=== PATIENT | male | born 1940 | race Caucasian/White ===

== ENCOUNTER 2016-06-18 03:10 | Emergency (ER) | payer OTHER, MEDICARE ==
[~2016-06-18] VITALS: Ht 170.2 cm; Wt 83.9 kg
[~2016-06-18 03:10] MED LIST: AUGMENTIN 875-1 EACH PO; KEFLEX250 M1 PO; LASIX40 M1 PO; LOSARTAN POTAS100 M1 PO; TYLENOL #31 TAB PO; VITAMIN B-121000 MC3 PO; XARELTO15 M1 PO; XARELTO20 M2 PO
--- NOTE | 2016-06-18 03:54 | ED UPPER/LOWER EXTREMITY COMPL ---
History of Present Illness General Chief Complaint: Lower Extremity Problems Stated Complaint: " CAN HARDLY BEND MY LT LEG, THINK ITS WATER" Source: patient Exam Limitations: no limitations Vital Signs & Intake/Output Vital Signs & Intake/Output Vital Signs Date Time Temp Pulse Resp B/P Pulse O2 O2 Flow FiO2 Ox Delivery Rate 06/18 0856 98.7 76 18 147/72 97 06/18 0636 97.3 80 18 157/74 96 06/18 0324 97.3 88 16 161/80 97 Room Air Allergies Coded Allergies: NO KNOWN ALLERGIES (03/21/16) Triage Note: 76yo MALE TO TRIAGE W/CO "UNABLE TO BEND L LEG" STATES HX "MINI STROKE AND R SIDE IS WEAKER" DENIES ANY FALL, TRAUMA OR INJURY. Triage Nurses Notes Reviewed? yes HPI: 76/M with PMH of HTN and stroke with remnants right side weakness presented to [facility] ED complaining of left knee swelling and pain. Patient had a full 6 days ago after which his pain started. He was seen this date after the fall and x-ray was done, no fracture was found at that time. He had mild swelling below the knee level at that time. Since yesterday patient swelling extended to above the knee. His pain started to be more severe. Patient reported limited range of motion on his left knee because of pain. He is pain-free when he does not use the left knee. Patient use cane to ambulate and he reported history of multiple falls. 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 see below for history Psychosocial History ETOH Use: denies use Illicit Drug Use: denies illicit drug use Family History Hx Contributory? No (TAYLOR PENDLETON,ANISH Hargrove) Review of Systems Review of Systems Constitutional: Denies: chills, diaphoresis, fever. Respiratory: Denies: cough, short of breath. Cardiovascular: Reports: peripheral edema (left side lower extremity). Denies: chest pain, palpitations, syncope. Gastrointestinal/Abdominal: Denies: abdominal pain, constipation, diarrhea, nausea, vomiting. Musculoskeletal: Reports: joint pain (left knee), joint swelling (left knee). (HARMONY PENDLETON,MANNY) Review of Systems EENTM: Reports: no symptoms. Genitourinary: Reports: no symptoms. Skin: Reports: no symptoms. Neurological/Psychological: Reports: no symptoms. Hematologic/Endocrine: Reports: no symptoms. Immunological: Reports: no symptoms. All Other Systems: Reviewed and Negative (TAYLOR PENDLETON,ANISH Hargrove) Physical Exam Physical Exam General Appearance: well developed/nourished, no apparent distress, alert, awake , moderate distress (with pending the left knee) Head: atraumatic, normal appearance Eyes: Bilateral: normal appearance, PERRL, EOMI. Cardiovascular/Respiratory: normal breath sounds, regular rate/rhythm Leg Left: swelling (knee and below), tenderness (lateral), pain, limited range of motion Leg Right: normal range of motion, normal inspection Knee Left: swelling, tenderness (lateral side), limited range of motion (because of pain) Knee Right: normal range of motion, normal inspection (HARMONY PENDLETON,MANNY) Physical Exam Neck: normal inspection, supple, no midline tenderness Gastrointestinal: SOFT, NONTENDER AND NONDISTENDED. nORMAL BOWEL SOUNDS. Back: normal inspection, normal range of motion, no vertebral tenderness Neurologic/Tendon: normal sensation, normal motor functions, normal tendon functions Skin: intact, normal color, warm/dry (TAYLOR PENDLETON,ANISH Hargrove) Progress Differential Diagnosis: DVT, fracture, gout Plan of Care: Orders Procedure Date/time Status US-UNILATERAL VENOUS DOPPLER 06/18 357 Active Diagnostic Imaging: Viewed by Me: CT Scan, Ultrasound. Discussed w/RAD: CT Scan, Ultrasound. Radiology Impression: PATIENT: CHAD VIRK PRESENT AGE: 76 PATIENT ACCOUNT NO: [id number] : 39 LOCATION: [facility] ORDERING PHYSICIAN: MANNY ANTUNEZ MD SERVICE DATE: 06/18/16 EXAM TYPE : CAT - CT LOWER EXT WO IV CONTRAST EXAMINATION: CT LOWER EXTREMITY WITHOUT CONTRAST, LEFT CLINICAL INFORMATION: Left knee swelling after fall 6 days ago. Pain. COMPARISON: None. TECHNIQUE: Multidetector volumetric imaging of the left knee was performed without IV contrast. Coronal and sagittal reformatted images were obtained at the technologist workstation. DLP: 905 mGy-cm. FINDINGS: There is no evidence of acute fracture or subluxation. Mild tricompartmental degenerative changes are noted with small marginal osteophytes. There is no joint effusion. There is prominent prepatellar soft tissue swelling with a hematoma present. The hematoma measures 6.1 x 2.4 x 10.5 cm. Vascular calcifications are noted. The musculature is unremarkable. IMPRESSION: No evidence of acute fracture or malalignment. Mild degenerative changes. Prominent hematoma in the prepatellar facial soft tissues. DICTATED BY: NORM MENDEZ MD DATE/TIME DICTATED:06/18/16432 CUE SELECTOR:JT DATE/TIME TRANSCRIBED:06/18/16432 CONFIDENTIAL, DO NOT COPY WITHOUT APPROPRIATE AUTHORIZATION. <Electronically signed in Other Vendor System> SIGNED BY: NORM MENDEZ MD 06/18/16438 Hand-Off Endorsed To: ROBERTO HERNANDEZ MD Endorsed Time: 0700 Pending: ultrasound (TAYLOR PENDLETON,ANISH Hargrove) Radiology Impression: PATIENT: CHAD VIRK PRESENT AGE: 76 PATIENT ACCOUNT NO: [id number] : 39 LOCATION: [facility] ORDERING PHYSICIAN: MANNY ANTUNEZ MD SERVICE DATE: 06/18/16 EXAM TYPE : CAT - CT LOWER EXT WO IV CONTRAST EXAMINATION: CT LOWER EXTREMITY WITHOUT CONTRAST, LEFT CLINICAL INFORMATION: Left knee swelling after fall 6 days ago. Pain. COMPARISON: None. TECHNIQUE: Multidetector volumetric imaging of the left knee was performed without IV contrast. Coronal and sagittal reformatted images were obtained at the technologist workstation. DLP: 905 mGy-cm. FINDINGS: There is no evidence of acute fracture or subluxation. Mild tricompartmental degenerative changes are noted with small marginal osteophytes. There is no joint effusion. There is prominent prepatellar soft tissue swelling with a hematoma present. The hematoma measures 6.1 x 2.4 x 10.5 cm. Vascular calcifications are noted. The musculature is unremarkable. IMPRESSION: No evidence of acute fracture or malalignment. Mild degenerative changes. Prominent hematoma in the prepatellar facial soft tissues. DICTATED BY: NORM MENDEZ MD DATE/TIME DICTATED:06/18/16432 CUE SELECTOR:BRAR DATE/TIME TRANSCRIBED:06/18/16432 CONFIDENTIAL, DO NOT COPY WITHOUT APPROPRIATE AUTHORIZATION. <Electronically signed in Other Vendor System> SIGNED BY: NORM MENDEZ MD 06/18/16438, PATIENT: CHAD VIRK PRESENT AGE: 76 PATIENT ACCOUNT NO: [id number] : 39 LOCATION: [facility] ORDERING PHYSICIAN: MANNY ANTUNEZ MD SERVICE DATE: 06/18/16 EXAM TYPE: US - US-UNILATERAL VENOUS DOPPLER EXAMINATION: US TRIPLEX LOWER EXTREMITY, LEFT CLINICAL INFORMATION: History of left lower extremity trauma 6 days ago with increasing swelling. Evaluate for DVT. COMPARISON: CT lower extremity 06/18 TECHNIQUE: Color-flow triplex imaging with spectral analysis and compression Doppler were performed on the left lower extremity. FINDINGS: Respiratory variation, normal compression and augmented flow are noted throughout the lower extremity. The visualized common femoral vein, superficial femoral vein, profunda femoral vein, popliteal vein and mid calf peroneal and posterior tibial venous segments show no evidence of deep venous thrombosis. There is no Neely's cyst. A complex heterogeneous collection is seen within the prepatellar soft tissues measuring 7.8 x 2.8 x 4.8 cm. IMPRESSION: Normal triplex scan without evidence of deep venous thrombosis involving the left lower extremity. Complex heterogeneous collection within the prepatellar soft tissues which likely represents a hematoma. DICTATED BY: JARED ZUNIGA DO DATE/TIME DICTATED:06/18/16815 CUE SELECTOR:BARR DATE/TIME TRANSCRIBED:815 CONFIDENTIAL, DO NOT COPY WITHOUT APPROPRIATE AUTHORIZATION. < Electronically signed in Other Vendor System> SIGNED BY: JARED ZUNIGA DO 06/18/16 0825 Comments: 06/18/2016 9:58:06 AM patient signed out to me by Dr. 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 I have updated Chad on his test results. (TERRI PENDLETON,ROBERTO Cabrera) Departure Departure Condition: Stable Referrals: TONY GRAY-PRADEEP,MOMO Ramos (PCP/Family) Departure Forms: Customer Survey General Discharge Information ([facility]ARMONY PENDLETON[facility] Resident Co-Sign Statement Statement: ED Attending supervision documentation- [X] I saw and evaluated the patient. I have also reviewed all the pertinent lab results and diagnostic results. I agree with the findings and the plan of care as documented in the Resident's documentation. [X] I have reviewed the ED Record and agree with the Resident's documentation. [] Additions or exceptions (if any) to the Resident's note and plan are summarized below: [Patient lost his balance and fell last and landed on his left knee. Patient had history of stroke with residual right-sided weakness and has frequent falls. Patient's left knee was bothering him so he went to see Dr. Corarl on Wednesday who obtained x-rays which were negative for any kind of fracture. Patient's left lower leg was swelling but it was not involving his knee until yesterday. Now the swelling from his lower leg has spread into his knee and he cannot fully bend his knee because the swelling. Patient is also finding it difficult to walk secondary to the pain in his left knee. The pain is throbbing in nature and he rates it as 7 out of 10. There is no radiation. The pain is exacerbated with walking. There is no numbness or tingling. We will obtain a CAT scan to rule out a small tibial plateau fracture as well as obtain an ultrasound to rule out a DVT.] (TAYLOR PENDLETON,ANISH Hargrove) Departure Disposition: HOME OR SELF CARE Clinical Impression Primary Impression: Left knee sprain Qualifiers: Encounter type: subsequent encounter Involved ligament of knee: unspecified ligament Qualified Code: S83.92XD - Sprain of unspecified site of left knee, subsequent encounter Secondary Impressions: Hematoma Additional Instructions: Ice and elevation of the left knee over the next 48 hours. Activity as tolerated. Follow-up with your primary care physician on Wednesday for reevaluation and further testing is indicated. Return if any concerns or sudden worsening. Please note that there might be incidental findings in your evaluation that are unrelated to the current emergency department visit. Please notify your primary care doctor about this emergency department visit in order to obtain and review all of the testing performed so that these incidental findings can be monitored as needed. If you had an x-ray performed, please understand that some fractures may not be seen on the initial set of x-rays. If your symptoms persist you might need a repeat set of x-rays to check for such a fracture. If you had a laceration evaluated, please understand that foreign bodies such as glass or wood may not be visible to the naked eye or on plain x-rays. If the wound becomes red, swollen, increasingly more painful or if there is any drainage from the wound, please have it reevaluated by a physician for the possibility of a retained foreign body. Thank you for choosing the [facility] Emergency Department for your care. It was a pleasure to serve you today. Roberto Hernandez M.D. [facility] (TERRI PENDLETON,ROBERTO Cabrera)
--- NOTE | 2016-06-18 04:39 | CT SCAN REPORT ---
EXAMINATION: CT LOWER EXTREMITY WITHOUT CONTRAST, LEFT CLINICAL INFORMATION: Left knee swelling after fall 6 days ago. Pain. COMPARISON: None. TECHNIQUE: Multidetector volumetric imaging of the left knee was performed without IV contrast. Coronal and sagittal reformatted images were obtained at the technologist workstation. DLP: 905 mGy-cm. FINDINGS: There is no evidence of acute fracture or subluxation. Mild tricompartmental degenerative changes are noted with small marginal osteophytes. There is no joint effusion. There is prominent prepatellar soft tissue swelling with a hematoma present. The hematoma measures 6.1 x 2.4 x 10.5 cm. Vascular calcifications are noted. The musculature is unremarkable. IMPRESSION: No evidence of acute fracture or malalignment. Mild degenerative changes. Prominent hematoma in the prepatellar facial soft tissues.
--- NOTE | 2016-06-18 08:25 | ULTRASOUND REPORT ---
EXAMINATION: US TRIPLEX LOWER EXTREMITY, LEFT CLINICAL INFORMATION: History of left lower extremity trauma 6 days ago with increasing swelling. Evaluate for DVT. COMPARISON: CT lower extremity 06/18/2016 TECHNIQUE: Color-flow triplex imaging with spectral analysis and compression Doppler were performed on the left lower extremity. FINDINGS: Respiratory variation, normal compression and augmented flow are noted throughout the lower extremity. The visualized common femoral vein, superficial femoral vein, profunda femoral vein, popliteal vein and mid calf peroneal and posterior tibial venous segments show no evidence of deep venous thrombosis. There is no Neely's cyst. A complex heterogeneous collection is seen within the prepatellar soft tissues measuring 7.8 x 2.8 x 4.8 cm. IMPRESSION: Normal triplex scan without evidence of deep venous thrombosis involving the left lower extremity. Complex heterogeneous collection within the prepatellar soft tissues which likely represents a hematoma.
[2016-06-18] MEDS ORDERED: HYDROCHLOROTH12.5 M3 PO (08:43)
[2016-06-18 08:56] VITALS: BP 147/72
== END 2016-06-18 10:17 ==
LOC: ERH 03:10
DX: S83.92XA Sprain of unspecified site of left knee, initial encounter (principal); T14.8 Other injury of unspecified body region; W19.XXXA Unspecified fall, initial encounter; Z86.718 Personal history of other venous thrombosis and embolism; M79.89 Other specified soft tissue disorders; M25.40 Effusion, unspecified joint

== ENCOUNTER 2016-06-22 11:03 | Emergency (ER) | payer OTHER, MEDICARE ==
[~2016-06-22] VITALS: Ht 170.2 cm; Wt 83.9 kg
[~2016-06-22 11:03] MED LIST changes: +HYDROCHLOROTH12.5 M3 PO
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
[2016-06-22 12:48] VITALS: BP 169/97
--- NOTE | 2016-06-22 12:49 | CT SCAN REPORT ---
EXAMINATION: CT HEAD WITHOUT CONTRAST CLINICAL INFORMATION: Fall. Hit head [back of the head. COMPARISON: None. TECHNIQUE: Contiguous axial imaging was performed from the skull base to vertex without intravenous administration of contrast. DLP: 600 mGy-cm. FINDINGS: There is no evidence of acute intracranial hemorrhage or territorial infarction. No abnormal mass effect or midline shift is seen. Macias to white matter differentiation is well preserved. No extra-axial fluid collections are identified. The ventricles are normal in size. There is no abnormal attenuation within the brain parenchyma. The osseous structures and soft tissues are normal. The mastoid air cells and visualized portions of the paranasal sinuses are well aerated. IMPRESSION: No acute intracranial process seen. No major change from 04/16/2016.
== END 2016-06-22 12:57 ==
LOC: ERH 11:03
DX: S01.01XA Laceration without foreign body of scalp, initial encounter (principal); S09.90XA Unspecified injury of head, initial encounter; W19.XXXA Unspecified fall, initial encounter

== ENCOUNTER 2016-06-26 11:02 | Emergency (ER) | payer OTHER, MEDICARE ==
[~2016-06-26] VITALS: Ht 170.2 cm; Wt 83.9 kg
[2016-06-26 11:17] VITALS: BP 176/90
--- NOTE | 2016-06-26 11:20 | ED SKIN/ALLERGY COMPLAINT ---
History of Present Illness General Chief Complaint: Suture Removal/Wound Recheck Stated Complaint: SUTURE REMOVAL Source: patient Exam Limitations: no limitations Vital Signs & Intake/Output Vital Signs & Intake/Output Vital Signs Date Time Temp Pulse Resp B/P Pulse O2 O2 Flow FiO2 Ox Delivery Rate 06/26 1117 97.9 71 18 176/90 95 Room Air Allergies Coded Allergies: NO KNOWN ALLERGIES (03/21/16) Reconcile Medications Hydrochlorothiazide 12.5 MG CAPSULE 1 CAP PO DAILY WATER PILL (Reported) Losartan Potassium 100 MG TABLET 1 TAB PO DAILY HEART (Reported) Triage Note: 76 Y/O MALE REQUESTING STAPLE REMOVAL (1) PLACED TO BACK OF HEAD; PLACED WEDNESDAY. DENIES COMPLAINTS. Triage Nurses Notes Reviewed? yes HPI: This patient is a 76-year-old male who presented to the emergency department today requesting staple removal from his head. The patient reported that on 06/22/2016, he fell and hit his head on a cabinet. He reported that he received 1 staple in the right side of his head. He denied any pain to the area. He denies any drainage, fevers, chills, or any other associated symptoms. (EVI MEYER PA-C) Past History Travel History Traveled to [place] past 21 day No Medical History Any Pertinent Medical History? see below for history Neurological: CVA EENT: NONE Cardiovascular: hypertension Respiratory: NONE Gastrointestinal: NONE Hepatic: NONE Renal: ENLARGED PROSTATE Musculoskeletal: falls, RLE FX NUMBNESS R FOOT Psychiatric: NONE Endocrine: NONE Blood Disorders: DVT Cancer(s): NONE RATE INSERTER/Reproductive: NONE Surgical History Surgical History: non-contributory Psychosocial History What is your primary language Korean Tobacco Use: Never used Family History Hx Contributory? No (EVI MEYER PA-C) Review of Systems Review of Systems Constitutional: Reports: no symptoms. EENTM: Reports: no symptoms. Respiratory: Reports: no symptoms. Cardiovascular: Reports: no symptoms. GI: Reports: no symptoms. Musculoskeletal: Reports: no symptoms. Skin: Reports: see HPI. Neurological/Psychological: Reports: no symptoms. All Other Systems: Reviewed and Negative (EVI MEYER PA-C) Physical Exam Physical Exam General Appearance: well developed/nourished, no apparent distress, alert, awake Comments: Well-developed well-nourished person in no acute distress HEENT: Head normocephalic/atraumatic with no bony deformities or step-offs of the skull, moist mucous membranes Neck: Supple, no lymphadenopathy Back: Normal gait Respiratory: No respiratory distress. Speaking in full sentences Extremities: No evidence of trauma Neuro: Alert and oriented x3 Psych: Mood affect normal, normal memory normal judgment. Skin: Warm and dry, no rash on exposed skin. One staple placed to the right side of the head near the occiput. No drainage from the wound site. Nose running erythema or edema. Nontender to palpation (EVI MEYER PA-C) Progress Differential Diagnosis: abscess/cellulitis, STAPLE REMOVAL Plan of Care: THIS PATIENT IS A 76-YEAR-OLD MALE WHO PRESENTED TO THE EMERGENCY DEPARTMENT TODAY FOR STAPLE REMOVAL. No fevers, chills, purulent drainage from the wound site, pain to the wound site, or any other signs of infection. The patient is nontoxic-appearing. I removed one staple. The patient tolerated the procedure well. Stable for discharge home. (EVI MEYER PA-C) Departure Departure Disposition: HOME OR SELF CARE Condition: Stable Clinical Impression Primary Impression: Removal of staple Referrals: NOLA PENDLETON,RENATA (PCP/Family) Additional Instructions: Continue to keep the wound site clean. Follow-up with your primary care physician. Return to the emergency department for any worsening symptoms or concerns. Departure Forms: Customer Survey General Discharge Information (EVI MEYER PA-C) PA/LOW PRESSURE KETTLE OPERATOR Co-Sign Statement Statement: ED Attending supervision documentation- [X] I saw and evaluated the patient. I have also reviewed all the pertinent lab results and diagnostic results. I agree with the findings and the plan of care as documented in the PA's/LOW PRESSURE KETTLE OPERATOR's documentation. [X] I have reviewed the ED Record and agree with the PA's/LOW PRESSURE KETTLE OPERATOR's documentation. [] Additions or exceptions (if any) to the PAs/LOW PRESSURE KETTLE OPERATOR's note and plan are summarized below: [] (KELSEY PENDLETON,LETA)
== END 2016-06-26 11:21 ==
LOC: ERH 11:02
DX: S01.01XD Laceration without foreign body of scalp, subsequent encounter (principal); W18.09XD Striking against other object with subsequent fall, subsequent encounter
CPT/HCPCS: 99281

== ENCOUNTER 2016-07-06 12:23 | Emergency (ER) | payer OTHER, MEDICARE ==
[~2016-07-06] VITALS: Ht 170.2 cm; Wt 83.9 kg
[2016-07-06 12:39] VITALS: BP 166/91
--- NOTE | 2016-07-06 13:23 | RADIOLOGY REPORT ---
EXAMINATION: XR FINGER, LEFT CLINICAL INFORMATION: Trauma/deformity COMPARISON: None TECHNIQUE: Frontal view of the hand and 2 views of the third digit FINDINGS: There is dislocation at the third PIP joint with the middle phalanx dorsally and ulnarly displaced with respect to the proximal phalanx. No fracture is identified. Otherwise alignment is anatomic. Mild degenerative changes of the PIP and DIP joints are visualized. IMPRESSION: Dislocation at the third PIP joint.
--- NOTE | 2016-07-06 13:47 | ED UPPER/LOWER EXTREMITY COMPL ---
History of Present Illness General Chief Complaint: Hand or Wrist Injury Stated Complaint: MIDDLE FINGER INJURY S/P FALL Source: patient Exam Limitations: no limitations Vital Signs & Intake/Output Vital Signs & Intake/Output Vital Signs Date Time Temp Pulse Resp B/P Pulse O2 O2 Flow FiO2 Ox Delivery Rate 07/06 1428 96 07/06 1239 98.2 85 20 166/91 96 Room Air Allergies Coded Allergies: NO KNOWN ALLERGIES (03/21/16) Reconcile Medications Hydrochlorothiazide 12.5 MG CAPSULE 1 CAP PO DAILY WATER PILL (Reported) Losartan Potassium 100 MG TABLET 1 TAB PO DAILY HEART (Reported) Triage Note: PT STATES HE FELL ABOUT A HALF HOUR AGO INJURING LEFT MIDDLE FINGER. PT STATES UNSURE HOW HE FELL BUT THAT SINCE HE HAD HIS CVA IN OCTOBER HE HAS FREQUENT FALLS. LEFT FINGER IS DEFORMED. XRAY ORDERED AND PT GIVEN 400 MG MOTRIN IN TRIAGE. PT DENIES LOC OR HEADSTRIKE Triage Nurses Notes Reviewed? yes Onset: Abrupt Duration: constant Severity: moderate Severity Numbers: 5 Pain/Injury Location: Left: 3rd finger. Method of Injury: direct blow, fall HPI: Patient is a 76-year-old male who presents emergency and that today while ambulating down his driveway he misstepped and fell brace his fall with his left outstretched hand and fingers resulting in acute onset of third finger digit pain and deformity. Patient does note associated swelling and ecchymosis however skin is intact. Denies any preceding episode of lightheaded sensation or dizziness. Denies any head strike. No medications given prior to arrival. (JAILYN YAO) Past History Travel History Traveled to [place] past 21 day No Medical History Any Pertinent Medical History? see below for history Neurological: CVA EENT: NONE Cardiovascular: hypertension Respiratory: NONE Gastrointestinal: NONE Hepatic: NONE Renal: ENLARGED PROSTATE Musculoskeletal: falls, RLE FX NUMBNESS R FOOT Psychiatric: NONE Endocrine: NONE Blood Disorders: DVT Cancer(s): NONE VALIDATION ARCHITECT/Reproductive: NONE Surgical History Surgical History: non-contributory Psychosocial History What is your primary language Nigerian Tobacco Use: Never used ETOH Use: occasional use Illicit Drug Use: denies illicit drug use Family History Hx Contributory? No (JAILYN YAO) Review of Systems Review of Systems Constitutional: Reports: no symptoms. EENTM: Reports: no symptoms. Respiratory: Reports: no symptoms. Cardiovascular: Reports: no symptoms. Gastrointestinal/Abdominal: Reports: no symptoms. Genitourinary: Reports: no symptoms. Musculoskeletal: Reports: see HPI, joint pain, joint swelling. Skin: Reports: see HPI, change in skin color. Neurological/Psychological: Reports: no symptoms. Hematologic/Endocrine: Reports: no symptoms. Immunological: Reports: no symptoms. All Other Systems: Reviewed and Negative (JAILYN YAO) Physical Exam Physical Exam General Appearance: no apparent distress Neurologic/Tendon: normal sensation, normal motor functions, normal tendon functions, responds to pain, no evidence tendon injury, no pulse deficit Skin: intact, warm/dry Comments: Well-developed well-nourished no apparent distress. HEENT: Atraumatic, extraocular motion intact Neck: Supple, no lymphadenopathy Back: Nontender Respiratory: No respiratory distress Extremities: Left wrist nontender full active range of motion normal inspection Neuro: Alert and oriented x3 Psych: Mood affect normal, normal memory normal judgment. Diagram Hands Front 1) Erythema swelling and tenderness noted, gross deformity noted skin is intact ecchymosis noted Dermatomes intact to left third digit capillary refill less than 2 seconds. (JAILYN YAO) Progress Differential Diagnosis: arterial insufficiency, compartment syndrome, contusion, dislocation, DVT, fracture, gout, septic arthritis, sprain, tendon injury Plan of Care: Orders Procedure Date/time Status XRY-FINGERS, LEFT 07/06 1348 Active Patient had noted third digit of hand dislocation of third PIP joint 1 reduction attempt was performed successfully and which I then placed a metal finger splint to the third digit with tape and which pre-and post-neurovascular was intact. X-rays confirmed successful reduction. Strongly advised patient to follow up with orthopedic doctor this week. Patient had normal steady gait on discharge Discussed patient with Dr. LEMOS who agrees with disposition plan (JAILYN YAO) Diagnostic Imaging: Viewed by Me: Radiology Read. Radiology Impression: acute abnormality Comments: PATIENT: CHAD VIRK PRESENT AGE: 76 PATIENT ACCOUNT NO: [id number] : 39 LOCATION: [facility] ORDERING PHYSICIAN: JAILYN GAO SERVICE DATE: 07/06/16-1348 EXAM TYPE: RAD - XRY-FINGERS, LEFT EXAMINATION: XR FINGER, LEFT CLINICAL INFORMATION: Status post reduction of third PIP joint. COMPARISON: None TECHNIQUE: 2 views of the left third. FINDINGS: The previously identified dislocated PIP joint has been re-articulated and appears in satisfactory position, no underlying fracture is seen. IMPRESSION: Satisfactory reduction, no fracture seen. PATIENT: CHAD VIRK PRESENT AGE: 76 PATIENT ACCOUNT NO: [id number] : 39 LOCATION: [facility] ORDERING PHYSICIAN: VERONIQUE LEMOS DO (TBS) SERVICE DATE: 07/06/16 EXAM TYPE: RAD - XRY-FINGERS, LEFT EXAMINATION: XR FINGER, LEFT CLINICAL INFORMATION: Trauma/deformity COMPARISON: None TECHNIQUE: Frontal view of the hand and 2 views of the third digit FINDINGS: There is dislocation at the third PIP joint with the middle phalanx dorsally and ulnarly displaced with respect to the proximal phalanx. No fracture is identified. Otherwise alignment is anatomic. Mild degenerative changes of the PIP and DIP joints are visualized. IMPRESSION: Dislocation at the third PIP joint. (JAILYN YAO) Departure Departure Disposition: HOME OR SELF CARE Condition: Stable Clinical Impression Primary Impression: Dislocation of finger PIP joint Referrals: NOLA PENDLETON,RENATA (PCP/Family) WILLIAN PENDLETON,HERMINIO Morrow Additional Instructions: As discussed continue to use the finger splint applied to YOU in the emergency room on at all times until you follow up with your orthopedic doctor. Today please call Dr. DORSEY to make an appointment to be seen this week for further evaluation treatment. If symptoms worsen return to emergency room. Begin over- the-counter Motrin for pain and inflammation Departure Forms: Customer Survey General Discharge Information (JAILYN YAO) PA/CORPORATE QUALITY ENGINEER Co-Sign Statement Statement: ED Attending supervision documentation- [X] I saw and evaluated the patient. I have also reviewed all the pertinent lab results and diagnostic results. I agree with the findings and the plan of care as documented in the PA's/CORPORATE QUALITY ENGINEER's documentation. [] I have reviewed the ED Record and agree with the PA's/CORPORATE QUALITY ENGINEER's documentation. [] Additions or exceptions (if any) to the PAs/CORPORATE QUALITY ENGINEER's note and plan are summarized below: [] (VERONIQUE LEMOS DO) Procedures Joint Reduction Joint Reduction Site: LEFT THIRD DIGIT OF HAND Reduction Attempts: 1 Pre-Procedure NV Exam: No Post-Procedure NV Exam: Yes Post Joint Reduction Film: joint reduced (JAILYN YAO)
--- NOTE | 2016-07-06 14:21 | RADIOLOGY REPORT ---
EXAMINATION: XR FINGER, LEFT CLINICAL INFORMATION: Status post reduction of third PIP joint. COMPARISON: None TECHNIQUE: 2 views of the left third. FINDINGS: The previously identified dislocated PIP joint has been re-articulated and appears in satisfactory position, no underlying fracture is seen. IMPRESSION: Satisfactory reduction, no fracture seen.
== END 2016-07-06 14:18 ==
LOC: ERH 12:23
DX: S63.283A Dislocation of proximal interphalangeal joint of left middle finger, initial encounter (principal); W19.XXXA Unspecified fall, initial encounter; Y92.014 Private driveway to single-family (private) house as the place of occurrence of the external cause
CPT/HCPCS: 73140-LT

== ENCOUNTER 2016-10-07 12:48 | Emergency (ER) | payer OTHER, MEDICARE ==
[~2016-10-07] VITALS: Ht 170.2 cm; Wt 81.6 kg
--- NOTE | 2016-10-07 13:15 | ED MVC/FALL/TRAUMA COMPLAINT ---
History of Present Illness General Chief Complaint: Fall Stated Complaint: PT HAD A FALL AND HURT THE RT EYE Source: patient, family Exam Limitations: no limitations Vital Signs & Intake/Output Vital Signs & Intake/Output Vital Signs Date Time Temp Pulse Resp B/P B/P Pulse O2 O2 Flow FiO2 Mean Ox Delivery Rate 10/07 1534 98.1 80 16 150/84 98 Room Air 10/07 1423 99.1 68 18 148/78 98 Room Air 10/07 1336 98 Room Air 10/07 1251 97.1 84 20 145/81 96 Room Air Allergies Coded Allergies: NO KNOWN ALLERGIES (03/21/16) Reconcile Medications Amlodipine Besylate 5 MG TABLET 1 TAB PO DAILY HEART (Reported) Cephalexin (Keflex) 500 MG CAPSULE 1 CAP PO TID FB Escitalopram Oxalate 10 MG TABLET 1 TAB PO DAILY DEPRESSION (Reported) Hydrochlorothiazide 12.5 MG CAPSULE 1 CAP PO DAILY WATER PILL (Reported) Losartan Potassium 100 MG TABLET 1 TAB PO DAILY HEART (Reported) Triage Note: PT TO ED C/O PAIN ALL OVER S/P FALL ABOUT 30 MINS AGO. PT ARRIVES WITH SISTER. PT STATES FREQUENT FALLS LATELY. DENIES DIZZINESS WITH FALLING, STATES ALL MECHANICAL FALLS. PT WITH ABRASIONS TO RIGHT SIDE OF FACE FROM TODAY'S FALL. DENIES LOC, DENIES BEING ON BLOOD THINNERS. PT LIVES ALONE. Triage Nurses Notes Reviewed? yes Onset: Abrupt Duration: hour(s):, constant, continues in ED Timing: single episode today Severity: moderate, severe Injuries/Fall Location: head, face, upper extremity Method of Injury: fall Loss of Consciousness: no loss of consciousness HPI: 76-year-old male comes into emergency room for further evaluation after falling. Patient tripped in the driveway. Patient has a history of mechanical falls reports that he falls very frequently. Patient has skin abrasions and bleeding to the right side of his face. No loss of consciousness. Denies any preceding chest pain shortness of breath lightheaded dizziness. Patient reports that his leg just gives out times. Patient complains of right shoulder pain as well as right index finger pain. Denies any other associated symptoms. (PRINCESS SETH) Past History Travel History Traveled to [place] past 21 day No Medical History Any Pertinent Medical History? see below for history Neurological: CVA EENT: NONE Cardiovascular: hypertension Respiratory: NONE Gastrointestinal: NONE Hepatic: NONE Renal: ENLARGED PROSTATE Musculoskeletal: falls, RLE FX NUMBNESS R FOOT Psychiatric: NONE Endocrine: NONE Blood Disorders: DVT Cancer(s): NONE TISSUE TECHNICIAN/Reproductive: NONE Surgical History Surgical History: non-contributory Psychosocial History What is your primary language Georgian Tobacco Use: Never used ETOH Use: denies use Illicit Drug Use: denies illicit drug use Family History Hx Contributory? No (PRINCESS SETH) Review of Systems Review of Systems Constitutional: Reports: no symptoms. Eyes: Reports: no symptoms. Ears, Nose, Throat, Mouth: Reports: no symptoms. Respiratory: Reports: no symptoms. Cardiovascular: Reports: no symptoms. Gastrointestinal/Abdominal: Reports: no symptoms. Genitourinary: Reports: no symptoms. Musculoskeletal: Reports: see HPI. Skin: Reports: see HPI. Neurological/Psychological: Reports: no symptoms. All Other Systems: Reviewed and Negative (PRINCESS SETH) Physical Exam Physical Exam General Appearance: well developed/nourished, alert, awake Head: normal appearance, swelling to right eye, skin abrasions, Eyes: Bilateral: normal appearance, PERRL, EOMI. Ears, Nose, Throat, Mouth: hearing grossly normal, moist mucous membrane Neck: normal inspection, full range of motion Respiratory: normal breath sounds, no respiratory distress Gastrointestinal: soft, non-tender Extremities: normal range of motion, full range of motion ofhips bilaterally, full range of motion of knees bilaterally, small skin abrasion of right knee, otherwise normal inspection, Neurologic/Psych: no motor/sensory deficits, awake, alert, oriented x 3, normal gait, normal mood/affect Skin: intact, normal color Core Measures ACS in differential dx? No Severe Sepsis Present: No Septic Shock Present: No (PRINCESS SETH) Progress Differential Diagnosis: abd injury, C/T/L spine injury, ext injury, ICH, pelvis injury, pnemothorax, spinal cord injury Plan of Care: Current Medications Sig/Laisha Start time Last Medication Dose Stop Time Status Admin Tetanus/Diphtheria 0.5 ML ONCE ONE 10/07 1600 AC Toxoids Adsorbed 10/07 1601 ([facility]) Diagnostic Imaging: Viewed by Me: Radiology Read, CT Scan. Discussed w/RAD: Radiology Read, CT Scan. Radiology Impression: EXAM TYPE: RAD - XRY-HAND, RIGHT; XRY-SHOULDER COMPLETE- RIGHT EXAMINATION: 1. XR SHOULDER, RIGHT 2. XR HAND, RIGHT CLINICAL INFORMATION: Pain after fall. COMPARISON: None TECHNIQUE: 4 views of the right shoulder and 3 views of the right hand were obtained. FINDINGS: RIGHT SHOULDER: No fracture of the proximal right humerus. The right humeral head demonstrates good articulation with the glenoid fossa. Acromioclavicular joint is within normal limits. RIGHT HAND: No fracture of the distal radius or ulna. Carpal rows are well aligned. No metacarpal or phalangeal fracture. Degenerative changes of the first interphalangeal joint. Joint. PIP and DIP joints are relatively well- maintained. Subtle, approximately 3 mm linear density projecting over the soft tissues of the first finger potentially represents a foreign body. IMPRESSION: 1. No fracture or dislocation of the right shoulder. 2. Mild degenerative changes of the right hand without fracture or dislocation. 3. Subtle, approximately 3 mm linear density projecting over the soft tissues of the first finger potentially represents a foreign body. Clinical correlation recommended. DICTATED BY: MEGHAN JONES MD DATE/TIME DICTATED:10/07/161426, EXAM TYPE: CAT - CT CERV SPINE WO IV CONTRAST; CT HEAD WO IV CONTRAST; CT MAXILLOFACIAL W/O CON EXAMINATION: CT HEAD WITHOUT IV CONTRAST CT CERVICAL SPINE WITHOUT IV CONTRAST CT MAXILLOFACIAL W/O IV CONTRAST CLINICAL INFORMATION: 76-year-old male with pain after fall/trauma. COMPARISON: Head CT from 06/22/2016. TECHNIQUE: Head - Contiguous axial imaging of the head was performed from the skull base to the vertex without the administration of intravenous contrast, and axial images are reconstructed at 0.625 mm and 5 mm slice thickness. Cervical spine and facial bones - Volumetric, helical CT acquisitions of the cervical spine and facial bones were obtained without contrast; in addition to the standard set of axial images, multiplanar reformatted images were provided in the coronal and sagittal imaging planes. DLP: 1723 mGy-cm (total) FINDINGS: HEAD: Atherosclerotic calcification of cavernous carotid arteries. Mild, patchy hypoattenuation of supratentorial white matter suggestive of chronic microvascular ischemic change. No evidence of acute intracranial hemorrhage, major vascular territory infarction, focal mass effect or midline shift. Macias to white matter differentiation is well preserved. The ventricles have normal size and configuration. The sulci and basilar cisterns are unremarkable. There are no extra-axial fluid collections. The calvarium is intact and the mastoid air cells and middle ear cavities are clear. CERVICAL SPINE: The occipital condyles, atlas, axis and atlantoaxial articulation are intact. The vertebral body heights are normal. The spinal alignment is normal with exception of minimal degenerative retrolisthesis at C5-C6. At C5-C6, there is [id number] degenerative disc space narrowing, traction osteophyte formation, and uncovertebral joint hypertrophy. The posterior disc-osteophyte complex at C5-C6 produces mild indentation upon the ventral surface of the thecal sac. The at C5- C6 uncovertebral joint osteophytes produce at least moderate bilateral foraminal stenosis. At C6-C7, there is moderate disc degeneration as manifest by loss of disc height, endplate irregularity and osteophyte formation. There is bilateral uncovertebral joint hypertrophy of C6-C7 with osteophytes producing mild left and [id number] right-sided foraminal stenosis. No acute fractures in the anterior or posterior elements. There is no prevertebral soft tissue swelling. Thyroid gland is unremarkable. No fluid collections within the visualized anterior neck or paraspinal soft tissue tissues. MAXILLOFACIAL BONES: There is edema within subcutaneous tissues of the right cheek without focal fluid collection. The maxilla, mandible and temporomandibular joints are intact. The globes and orbital watts, including lamina papyracea, are intact. The orbital apex, optic canals, and retrobulbar fat planes are normal. Nasal bones, pterygoid plates and zygomatic arches are intact. There is mild mucosal thickening in the inferior aspect of each maxillary antrum without air-fluid level. The maxillary sinus drainage pathways are widely patent. Otherwise, paranasal sinuses are unremarkable. IMPRESSION: 1. No acute intracranial pathology. 2. No acute fractures in the degenerated cervical spine. 3. Posttraumatic soft tissue edema/bruising of the right cheek. The vertical and horizontal buttresses of the face are intact. No acute facial bone fracture. (PRINCESS SETH) Departure Departure Disposition: HOME OR SELF CARE Condition: Stable Clinical Impression Primary Impression: Head injury Secondary Impressions: Shoulder sprain, Soft tissues foreign body Referrals: NOLA PENDLETON,RENATA (PCP/Family) Additional Instructions: You must use your walker at home when walking. Return if any other concerns worsening symptoms. Physical therapy and nursing is being set up for you as an outpatient. Return if any other concerns. Small soft tissue foreign body in your right index finger that needs to be followed up with your primary care doctor. Return if any redness or discharge out of that finger. Take Keflex as prescribed. Please go over all results of today's visit with your primary care doctor. Contact your primary care doctor to let them know you were here in the emergency room. There may be nonspecific findings which may not be related to your visit today here in the emergency room but may require further evaluation and chronic monitoring by your primary care doctor. If you had a laceration today the chance of foreign body always remains. You should follow-up with your primary care doctor for recheck in 3-5 days for a wound check. If you had an x-ray done there is a chance that a fracture could have been missed on initial read and you should follow-up with your primary care doctor for repeat x-rays if symptoms persist. If your blood pressure was elevated here in the emergency room please have rechecked by her primary care doctor within the next 48 hours by your primary care doctor. If you were prescribed a narcotic here in the emergency room or any type of controlled substances you're not allowed to drive while taking this medication or operate any type of heavy machinery. Narcotics can make you feel lightheaded dizziness nausea and can cause constipation. You may need to chicken picker a stool softener. Thank you for choosing [facility] emergency room. Please return to the emergency room immediately if you have any other concerns worsening of symptoms. Departure Forms: Customer Survey General Discharge Information Prescriptions: Current Visit Scripts Cephalexin (Keflex) 1 CAP PO TID #21 CAP Comments 10/07/2016 4:06:10 PM Patient able to walk here with no difficulty with his walker. He has a walker at home but chooses not to use it at times. Patient told to use his walker. Mechanical falls. Clinically looks well. Nontoxic-appearing. Case discussed with Dr. palacios. Case management saw the patient and evaluated him and is going to set up home physical therapy and nursing. Patient has this foreign body seen on x-ray. Started on oral Keflex. His finger is swollen but it is swollen from the fall. It does not look hot or red to touch. Unclear as to how long the foreign bodies been there. Patient told that he needs follow-up with his primary care for this if it gets infected especially. (PRINCESS SETH) PA/[employer]PERVIS[employer] Co-Sign Statement Statement: ED Attending supervision documentation- [X] I saw and evaluated the patient. I have also reviewed all the pertinent lab results and diagnostic results. I agree with the findings and the plan of care as documented in the PA's/SUPER[employer]'s documentation. [X] I have reviewed the ED Record and agree with the PA's/SUPER[employer]'s documentation. [] Additions or exceptions (if any) to the PAs/SUPER[employer]'s note and plan are summarized below: [] (KELSEY PENDLETON,LETA) Procedures Laceration/Wound Repair Progress: Multiple superficial cuts to right face and abrasions, irrigated with peroxide, Dermabond use, sterile technique, Steri-Strips use, small amount of bacitracin, nothing suturable (PRINCESS SETH)
[2016-10-07] MEDS ORDERED: ESCITALOPRAM OX10 MG PO (13:48)
[2016-10-07] MEDS ORDERED: AMLODIPINE BESYL5 M1 PO (13:48)
--- NOTE | 2016-10-07 14:23 | CT SCAN REPORT ---
EXAMINATION: CT HEAD WITHOUT IV CONTRAST CT CERVICAL SPINE WITHOUT IV CONTRAST CT MAXILLOFACIAL W/O IV CONTRAST CLINICAL INFORMATION: 76-year-old male with pain after fall/trauma. COMPARISON: Head CT from 06/22/2016. TECHNIQUE: Head - Contiguous axial imaging of the head was performed from the skull base to the vertex without the administration of intravenous contrast, and axial images are reconstructed at 0.625 mm and 5 mm slice thickness. Cervical spine and facial bones - Volumetric, helical CT acquisitions of the cervical spine and facial bones were obtained without contrast; in addition to the standard set of axial images, multiplanar reformatted images were provided in the coronal and sagittal imaging planes. DLP: 1723 mGy-cm (total) FINDINGS: HEAD: Atherosclerotic calcification of cavernous carotid arteries. Mild, patchy hypoattenuation of supratentorial white matter suggestive of chronic microvascular ischemic change. No evidence of acute intracranial hemorrhage, major vascular territory infarction, focal mass effect or midline shift. Macias to white matter differentiation is well preserved. The ventricles have normal size and configuration. The sulci and basilar cisterns are unremarkable. There are no extra-axial fluid collections. The calvarium is intact and the mastoid air cells and middle ear cavities are clear. CERVICAL SPINE: The occipital condyles, atlas, axis and atlantoaxial articulation are intact. The vertebral body heights are normal. The spinal alignment is normal with exception of minimal degenerative retrolisthesis at C5-C6. At C5-C6, there is jswrzblz-[id number] degenerative disc space narrowing, traction osteophyte formation, and uncovertebral joint hypertrophy. The posterior disc-osteophyte complex at C5-C6 produces mild indentation upon the ventral surface of the thecal sac. The at C5-C6 uncovertebral joint osteophytes produce at least moderate bilateral foraminal stenosis. At C6-C7, there is moderate disc degeneration as manifest by loss of disc height, endplate irregularity and osteophyte formation. There is bilateral uncovertebral joint hypertrophy of C6-C7 with osteophytes producing mild left and [id number]-yy-usqhaa right-sided foraminal stenosis. No acute fractures in the anterior or posterior elements. There is no prevertebral soft tissue swelling. Thyroid gland is unremarkable. No fluid collections within the visualized anterior neck or paraspinal soft tissue tissues. MAXILLOFACIAL BONES: There is edema within subcutaneous tissues of the right cheek without focal fluid collection. The maxilla, mandible and temporomandibular joints are intact. The globes and orbital watts, including lamina papyracea, are intact. The orbital apex, optic canals, and retrobulbar fat planes are normal. Nasal bones, pterygoid plates and zygomatic arches are intact. There is mild mucosal thickening in the inferior aspect of each maxillary antrum without air-fluid level. The maxillary sinus drainage pathways are widely patent. Otherwise, paranasal sinuses are unremarkable. IMPRESSION: 1. No acute intracranial pathology. 2. No acute fractures in the degenerated cervical spine. 3. Posttraumatic soft tissue edema/bruising of the right cheek. The vertical and horizontal buttresses of the face are intact. No acute facial bone fracture.
--- NOTE | 2016-10-07 14:36 | RADIOLOGY REPORT ---
EXAMINATION: 1. XR SHOULDER, RIGHT 2. XR HAND, RIGHT CLINICAL INFORMATION: Pain after fall. COMPARISON: None TECHNIQUE: 4 views of the right shoulder and 3 views of the right hand were obtained. FINDINGS: RIGHT SHOULDER: No fracture of the proximal right humerus. The right humeral head demonstrates good articulation with the glenoid fossa. Acromioclavicular joint is within normal limits. RIGHT HAND: No fracture of the distal radius or ulna. Carpal rows are well aligned. No metacarpal or phalangeal fracture. Degenerative changes of the first interphalangeal joint. Joint. PIP and DIP joints are relatively well-maintained. Subtle, approximately 3 mm linear density projecting over the soft tissues of the first finger potentially represents a foreign body. IMPRESSION: 1. No fracture or dislocation of the right shoulder. 2. Mild degenerative changes of the right hand without fracture or dislocation. 3. Subtle, approximately 3 mm linear density projecting over the soft tissues of the first finger potentially represents a foreign body. Clinical correlation recommended.
[2016-10-07 15:34] VITALS: BP 150/84
[2016-10-07] MEDS ORDERED: KEFLEX500 M1 PO (16:03)
== END 2016-10-07 16:15 ==
LOC: ERH 12:48
DX: S09.90XA Unspecified injury of head, initial encounter (principal); S43.401A Unspecified sprain of right shoulder joint, initial encounter; S60.450A Superficial foreign body of right index finger, initial encounter; S00.81XA Abrasion of other part of head, initial encounter; W01.0XXA Fall on same level from slipping, tripping and stumbling without subsequent striking against object, initial encounter; Y93.01 Activity, walking, marching and hiking; Y92.014 Private driveway to single-family (private) house as the place of occurrence of the external cause
CPT/HCPCS: 73030-RT; 73130-RT; 90471; 90714

== ENCOUNTER 2018-01-26 10:33 | Emergency (ER) | payer OTHER, MEDICARE ==
[~2018-01-26] VITALS: Ht 170.2 cm; Wt 81.6 kg
[~2018-01-26 10:33] MED LIST changes: +AMLODIPINE BESYL5 M1 PO; +ESCITALOPRAM OX10 MG PO; +KEFLEX500 M1 PO
--- NOTE | 2018-01-26 11:13 | CT SCAN REPORT ---
EXAMINATION: CT HEAD WITHOUT CONTRAST CLINICAL INFORMATION: Intracranial hemorrhage fall head injury. COMPARISON: Prior CT head June 2017 TECHNIQUE: Contiguous axial imaging was performed from the skull base to vertex without intravenous administration of contrast. DLP: 926 mGy-cm FINDINGS: There is no evidence of acute intracranial hemorrhage or territorial infarction. No abnormal mass effect or midline shift is seen. Macias to white matter differentiation is well preserved. No extra-axial fluid collections are identified. The ventricles are normal in size. There is no abnormal attenuation within the brain parenchyma. The osseous structures and soft tissues are normal. The mastoid air cells and visualized portions of the paranasal sinuses are well aerated. IMPRESSION: No acute intracranial pathology.
--- NOTE | 2018-01-26 11:24 | ED GENERAL ADULT ---
History of Present Illness General Chief Complaint: Fall Stated Complaint: FALL LAST PM +HEADSTRIKE Source: patient Exam Limitations: no limitations Vital Signs & Intake/Output Vital Signs & Intake/Output Vital Signs Date Time Temp Pulse Resp B/P B/P Pulse O2 O2 Flow FiO2 Mean Ox Delivery Rate 01/26 1230 98.0 63 20 174/82 98 Room Air 01/26 1039 97.6 80 20 134/77 96 Room Air Allergies Coded Allergies: NO KNOWN ALLERGIES (03/21/16) Reconcile Medications Amlodipine Besylate 5 MG TABLET 1 TAB PO DAILY HEART (Reported) Cephalexin (Keflex) 500 MG CAPSULE 1 CAP PO TID FB Escitalopram Oxalate 10 MG TABLET 1 TAB PO DAILY DEPRESSION (Reported) Hydrochlorothiazide 12.5 MG CAPSULE 1 CAP PO DAILY WATER PILL (Reported) Losartan Potassium 100 MG TABLET 1 TAB PO DAILY HEART (Reported) Triage Note: PT TO ED S/P FALL LAST NIGHT. PT WAS WALKING AND TRIPPED OVER A CHAIR, FALLING TO FLOOR, STRIKING HEAD ON WOOD FLOOR. DENIES LOC. PT GOT RIGHT UP. UNWITNESSED FALL. DENIES BEING ON BLOOD THINNERS. DENIES PAIN/NO COMPLAINTS. "I NEED A CAT SCAN". Triage Nurses Notes Reviewed? yes Onset: Abrupt Duration: day(s): Timing: single episode yesterday HPI: 77-year-old male with a history of CVA, hypertension, BPH, DVT presenting status post mechanical fall last night. Patient states he was walking and tripped over a chair, he fell to the floor and struck his head on a wooden floor. Denies LOC. Is not on any anticoagulation. Denies headaches, nausea, vomiting, visual changes since the fall. He is asymptomatic at this time and states that he would just like to get a CT of his head to assess for intracranial injury. Patient reports chronic neck pain 6-8 months status post a mechanical fall down a flight of stairs. States that he was seen at [facility] for evaluation after that fall and then discharged home. (Radha Charles) Past History Travel History Traveled to [place] past 21 day No Medical History Any Pertinent Medical History? see below for history Neurological: CVA EENT: NONE Cardiovascular: hypertension Respiratory: NONE Gastrointestinal: NONE Hepatic: NONE Renal: ENLARGED PROSTATE Musculoskeletal: falls, RLE FX NUMBNESS R FOOT Psychiatric: NONE Endocrine: NONE Blood Disorders: DVT Cancer(s): NONE CEMENT PAVER/Reproductive: NONE Tetanus Vaccine: 10/07/16 Surgical History Surgical History: non-contributory Psychosocial History What is your primary language Vietnamese Tobacco Use: Never used ETOH Use: denies use Illicit Drug Use: denies illicit drug use Family History Hx Contributory? No (Radha Charles) Review of Systems Review of Systems Constitutional: Reports: no symptoms. EENTM: Reports: no symptoms. Respiratory: Reports: no symptoms. Cardiovascular: Reports: no symptoms. GI: Reports: no symptoms. Genitourinary: Reports: no symptoms. Musculoskeletal: Reports: no symptoms. Skin: Reports: no symptoms. Neurological/Psychological: Reports: no symptoms. Hematologic/Endocrine: Reports: no symptoms. Immunologic/Allergic: Reports: no symptoms. All Other Systems: Reviewed and Negative (Radha Charles) Physical Exam Physical Exam General Appearance: well developed/nourished, no apparent distress, alert, awake , comfortable Comments: Primary Survey: Airway: intact Breathing: breath sounds equal bilaterally Circulation: 2+ distal pulses Disability: a&ox3, pupils equally round and reactive Secondary Survey: Head: Normocephalic, atraumatic, nontender, no skull depressions/deformities Ears: No hemotympanum Nose: No epistaxis or septal hematomas Throat/mouth : No oral lacerations, no missing teeth Face: No abrasions/lacerations, no crepitus or deformities Neck: No midline TTP, no paraspinal tenderness to palpation, decrease in cervical range of motion Heart: Regular rate and rhythm Lungs: Clear to auscultation bilaterally with normal air entry Chest: Nontender, no flail segments Abdomen: Soft, nontender, nondistended, normal bowel sounds Pelvis: Non-tender and stable to AP and lateral compression Extremities: Decrease in range of motion at right shoulder, otherwise unrestricted range of motion all extremity joints Neurologic: Cranial nerves grossly intact, no sensory deficitis, mild decrease in motor strength of right upper extremity (patient states this is baseline), otherwise no motor deficits, cerebellalr function intact Skin: warm and dry and without ecchymoses or abrasions Back: No midline TTP of C-spine, T-spine, or L-spine Rectal exam: deferred Core Measures ACS in differential dx? No CVA/TIA Diagnosis: No Sepsis Present: No Sepsis Focused Exam Completed? No (Radha Charles) Progress Differential Diagnoses I considered the following diagnoses in my evaluation of the patient: [Head contusion versus concussion versus ICH versus cranial fracture versus vertebral fracture versus cervical sprain versus cervical strain versus shoulder fracture versus sprain] Plan of Care: Orders Procedure Date/time Status XRY-SHOULDER COMPLETE-RIGHT 01/[address] scan IMPRESSION: Prominent subluxation of C4 on C5 resulting in grade 2 anterolisthesis and kyphosis of the cervical spine. This is new compared with the October 2016 exam. Although the acuity is uncertain , this may be acute given the clinical presentation and change in appearance compared with the October 2016 exam. Consider additional follow-up imaging with MRI to assess for acuity of injury as well as to assess the status of the spinal cord as felt clinically appropriate.. Discussed with neurosurgery who reviewed patient's prior scans within [facility]'s system and it was determined that the findings are acute and unstable. Patient to be transferred to [facility] as a modified trauma. Initial ED EKG: none (Radha Charles) Departure Departure Disposition: OTHER [facility] (ACUTE) Condition: Stable Clinical Impression Primary Impression: Closed subluxation of cervical spine Referrals: Ashly Madrid MD (PCP/Family) Departure Forms: Customer Survey General Discharge Information (Radha Charles) PA/ROLL WRAPPER Co-Sign Statement Statement: ED Attending supervision documentation- [X] I saw and evaluated the patient. I have also reviewed all the pertinent lab results and diagnostic results. I agree with the findings and the plan of care as documented in the PA's/ROLL WRAPPER's documentation. [X] I have reviewed the ED Record and agree with the PA's/ROLL WRAPPER's documentation. [] Additions or exceptions (if any) to the PAs/ROLL WRAPPER's note and plan are summarized below: [Fall yesterday with a head injury. Patient states he has chronic neck pain. 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 His CAT scan shows an acute subluxation of the cervical spine. Case was discussed with neurosurgery and they recommend transfer to [facility] for trauma evaluation.] (Dory PENDLETON,Jomar Hargrove) Critical Care Note Critical Care Note Critical Care Time: non-applicable (Radha Charles)
--- NOTE | 2018-01-26 11:41 | CT SCAN REPORT ---
EXAMINATION: CT CERVICAL SPINE WITHOUT CONTRAST CLINICAL INFORMATION: Fall head injury COMPARISON: Prior CT of the cervical spine October 2016 TECHNIQUE: CT scan cervical spine with additional sagittal coronal reformatted images obtained the acquisition workstation DLP: 311 mGy-cm FINDINGS: There is new (compared with 2017) markedly anterior subluxation of C4 on C5 resulting in grade 2 anterolisthesis with anterior translation of the C4 vertebral body by approximately 0.7 cm roughly half the AP length of the superior endplate of C5. Associated with this is symmetric anterior subluxation of the facet joints with the inferior portion of the C4 facets perched on the anterior aspects of the superior facets of C5. This abnormality results in prominent kyphosis of the cervical spine estimated at 52 degrees measured between C3 and C7 I do not see a fracture. I do not see any definite surrounding soft tissue abnormality. There is persistent severe degenerative disc changes with disc space narrowing at C5-C6 and C6-C7 levels unchanged. Bilateral facet arthrosis at the C2-C3 and C3-C4 levels. IMPRESSION: Prominent subluxation of C4 on C5 resulting in grade 2 anterolisthesis and kyphosis of the cervical spine. This is new compared with the October 2016 exam. Although the acuity is uncertain , this may be acute given the clinical presentation and change in appearance compared with the October 2016 exam. Consider additional follow-up imaging with MRI to assess for acuity of injury as well as to assess the status of the spinal cord as felt clinically appropriate.. This critical result was discussed with Jomar Connors at approximately 11:30 AM on 01/26/2018 and it was ascertained that the content and urgency of the report was understood at the time of direct communication.
--- NOTE | 2018-01-26 12:10 | RADIOLOGY REPORT ---
EXAMINATION: XR SHOULDER, RIGHT CLINICAL INFORMATION: Fracture pain COMPARISON: Prior x-ray of the shoulder June 2017 TECHNIQUE: AP external rotation, Grashey, scapular Y, and axillary views of the right shoulder. FINDINGS: There is mild AC joint arthrosis and mild glenohumeral joint arthrosis unchanged. The surrounding bone and soft tissues are unremarkable IMPRESSION: Mild arthrosis unchanged I do not see a fracture
[2018-01-26 12:30] VITALS: BP 174/82
== END 2018-01-26 13:32 | disposition short-term general hospital (02) ==
LOC: ERH 10:33
DX: M50.20 Other cervical disc displacement, unspecified cervical region (principal)
CPT/HCPCS: 73030-RT

== ENCOUNTER 2018-02-21 08:08 | Emergency (ER) | payer OTHER, MEDICARE ==
[~2018-02-21] VITALS: Ht 172.7 cm; Wt 72.6 kg
[~2018-02-21 08:08] MED LIST changes: +AMLODIPINE BESY10 M1 PO; -AMLODIPINE BESYL5 M1 PO
[2018-02-21] MEDS ORDERED: HEPARIN SO5000 UNIT3 SC (08:19)
[2018-02-21] MEDS ORDERED: SENNA8.6 M3 PO (08:20)
[2018-02-21] MEDS ORDERED: COLACE100 M1 PO (08:21)
[2018-02-21 08:55] LABS: ABSOLUTE BASOPHIL COUNT 0 /CUMM (0.0-0.2); ABSOLUTE EOSINOPHIL COUNT 0.2 /CUMM (0.0-0.7); ABSOLUTE GRANULOCYTE CT 4.4 /CUMM (1.4-6.5); ABSOLUTE LYMPH COUNT 1.3 /CUMM (1.2-3.4); ABSOLUTE MONOCYTE COUNT 0.5 /CUMM (0.10-0.60); BASOPHIL % 0.4 % (0.0-2.0); MEAN CORPUSCULAR HGB 30.8 PG (27.0-31.0); MEAN CORPUSCULAR HGB CONC 34.5 G/DL (33.0-37.0); MEAN CORPUSCULAR VOLUME 89.3 FL (80.0-94.0); MEAN PLATELET VOLUME 7.4 FL (7.4-10.4); PLATELET COUNT 239 /CUMM (130-400); RBC DISTRIBUTION WIDTH 13.9 % (11.5-14.5); RED BLOOD CELL CT 4.03 /CUMM (4.70-6.10); WHITE BLOOD CELL COUNT 6.5 /CUMM (4.8-10.8)
[2018-02-21 09:00] LABS: PT 11.9 SEC (9.4-12.5); PTT 35 SEC (25-37)
[2018-02-21 09:34] VITALS: BP 138/68
--- NOTE | 2018-02-21 09:49 | CT SCAN REPORT ---
EXAMINATION: CT OF THE HEAD WITHOUT CONTRAST CT OF THE CERVICAL SPINE WITHOUT CONTRAST CLINICAL INFORMATION: Fall with head strike. Trauma. Neck pain after fall.. COMPARISON: Head and cervical spine CT scan dated 01/26/2018 and 10/07/2016. CT scan of the head dated 06/14/2017.. TECHNIQUE: Contiguous axial imaging was performed from the skullbase to vertex without intravenous administration of contrast. Coronal reformations of the head were obtained. Contiguous axial imaging was then performed from the skull base down to the thoracic inlet. Coronal and sagittal reformations of the cervical spine were obtained. DLP: 1010.30 mGy-cm. FINDINGS: CT scan of the head: There is no evidence of acute intracranial hemorrhage or territorial infarction. No abnormal mass-effect or midline shift is seen. Macias to white matter differentiation is well preserved. No extra-axial fluid collections are identified. The ventricles are normal in size. There is mild deep white matter periventricular low-attenuation seen, consistent with ischemic small vessel disease. A small hypodensity in the left basal ganglia is stable dating back to 04/16/2016, likely a prominent perivascular space versus old lacunar infarction. Calcification of the left vertebral artery and the bilateral carotid siphons is seen. The patient is status post bilateral scleral banding. The osseous structures and soft tissues are normal. The mastoid air cells and visualized portions of the paranasal sinuses are well-aerated. CT scan of the cervical spine: Evaluation is limited due to beam hardening artifact related to anterior spinal fusion hardware at C4-5. There is mild posterior subluxation of the C5 vertebral body relative to C6, unchanged from prior exam. Minimal anterolistheses of C4 on C5 is seen, much improved compared to the prior exam. Posterior spinal fusion hardware is seen extending from the C3 level down to C6. The fusion hardware appears intact. No evidence of acute fracture or dislocation. Craniocervical junction and atlantoaxial articulations are intact with moderate degenerative/hypertrophic changes again seen. Prevertebral soft tissues are normal in thickness. The included soft tissues of the neck are unremarkable. Minimal biapical reticulation is seen, consistent with scarring. IMPRESSION: CT scan of the head: No acute intracranial pathology. Changes of ischemic small vessel disease again noted. CT scan of the cervical spine: Evaluation limited by beam hardening artifact related to spinal fusion hardware. No evidence of acute cervical spine fracture. There is persistent anterolistheses of C4 on C5, significantly improved compared to prior exam status post anterior and posterior spinal fusion. No significant change in grade 1 retrolisthesis of C5 on C6.
--- NOTE | 2018-02-21 09:54 | ED MVC/FALL/TRAUMA COMPLAINT ---
History of Present Illness General Chief Complaint: General Adult Stated Complaint: BIBA S/P FALL Source: patient Exam Limitations: no limitations Allergies Coded Allergies: NO KNOWN ALLERGIES (03/21/16) Reconcile Medications Amlodipine Besylate 10 MG TABLET 1 TAB PO DAILY HEART (Reported) Docusate Sodium (Colace) 100 MG CAPSULE 1 CAP PO BID STOOL SOFTENER (Reported ) Escitalopram Oxalate 10 MG TABLET 1 TAB PO DAILY DEPRESSION (Reported) Heparin Sodium,Porcine (Heparin Sodium) 5,000 UNIT/ML VIAL 1 ML SC Q8 BLOOD THINNER (Reported) Losartan Potassium 100 MG TABLET 1 TAB PO DAILY HEART (Reported) Sennosides (Senna) 8.6 MG TABLET 2 TAB PO QPM CONSTIPATION (Reported) Triage Note: 77 Y/O MALE MANFRED FROM PRISON ([facility] FOR EVAL S/P FALL. 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 ARRIVES TO ED WITH CERVICAL COLLAR IN PLACE (HX SUBLUXATION OR CERVICAL VERTEBRAE PER W10). HAS DRESSING IN PLACE WITH NO ACTIVE BLEEDING. PT DENIES COMPLAINTS. AWAITING EVAL Triage Nurses Notes Reviewed? yes Onset: Abrupt Duration: hour(s): (1), constant, continues in ED Timing: recent history Severity: mild, moderate Severity Numbers: 6 Injuries/Fall Location: head, face Method of Injury: fall Loss of Consciousness: no loss of consciousness No Modifying Factors: none HPI: 77-year-old male history of hypertension CVA, recurrent falls presents for evaluation after a fall. According to EMS patient suffered a trip and fall hitting the right forehead on the ground. No loss of consciousness the fall was witnessed by [facility] staff were patient is a resident. Patient denies taking blood thinners however there is heparin on his medication list. He does have history of DVT. Patient is also currently being treated for a cervical vertebrae subluxation and is in a cervical collar chronically. He denies any neck pain. He does report some headache in the area of the laceration. No changes in vision or vomiting no other injuries no chest pain shortness of breath or dizziness before the fall. Denies hip pain. According to EMS patient is at his baseline. (Jasper Brown) Vital Signs & Intake/Output Vital Signs & Intake/Output ED Intake and Output 02/22 0000 02/21 1200 Intake Total Output Total Balance Patient 160 lb Weight Weight Estimated Measurement Method (Mary PENDLETON,Roberto Murillo) Past History Travel History Traveled to [place] past 21 day No Medical History Any Pertinent Medical History? see below for history Neurological: CVA EENT: NONE Cardiovascular: hypertension Respiratory: NONE Gastrointestinal: NONE Hepatic: NONE Renal: ENLARGED PROSTATE Musculoskeletal: falls, RLE FX NUMBNESS R FOOT Psychiatric: NONE Endocrine: NONE Blood Disorders: DVT Cancer(s): NONE DISH MAKER/Reproductive: NONE Tetanus Vaccine: 10/07/16 Surgical History Surgical History: non-contributory Psychosocial History What is your primary language Mongolian Tobacco Use: Never used Family History Hx Contributory? No (Jasper Brown) Review of Systems Review of Systems Constitutional: Reports: no symptoms. Eyes: Reports: no symptoms. Ears, Nose, Throat, Mouth: Reports: no symptoms. Respiratory: Reports: no symptoms. Cardiovascular: Reports: no symptoms. Gastrointestinal/Abdominal: Reports: no symptoms. Genitourinary: Reports: no symptoms. Musculoskeletal: Reports: no symptoms. Skin: Reports: no symptoms. Neurological/Psychological: Reports: see HPI, headache. All Other Systems: Reviewed and Negative (Jasper Brown) Physical Exam Physical Exam General Appearance: well developed/nourished, no apparent distress, alert, awake Head: normal appearance, THERE IS A 2.5 CM LINEAR LACERATION TO THE RIGHT FOREHEAD JUST ABOVE THE EYEBROW. sMALL AMOUNT OF ACTIVE BLEEDING NOTED. tHERE IS ALSO SOME SOFT TISSUE SWELLING AROUND THE LACERATION. nO OTHER SCALP HEMATOMAS OR LACERATIONS NO PRYOR SIGNS OR RACCOON EYES Eyes: Bilateral: normal appearance, PERRL, EOMI. Ears, Nose, Throat, Mouth: moist mucous membrane, Tympanic normal Neck: CERVICAL COLLAR IS IN PLACE Respiratory: normal breath sounds, chest non-tender, no respiratory distress, lungs clear, NO SIGNS OF TRAUMA TO THE CHEST. nO BRUISING SWELLING OR ABRASIONS NO TENDERNESS TO PALPATION Cardiovascular: regular rate/rhythm, normal peripheral pulses Peripheral Pulses: 2+ radial (R), 2+ radial (L), 2+ dorsalis pedis (R), 2+ dorsalis pedis (L) Gastrointestinal: soft, non-tender Back: normal inspection, normal range of motion, no vertebral tenderness Extremities: normal range of motion, PATIENT IS MOVING ALL EXTREMITIES EQUALLY NO JOINT SWELLING OR PAIN Neurologic/Psych: no motor/sensory deficits, awake, alert, oriented x 3, SLOW GAIT WITH WALKER Skin: intact, normal color, warm/dry Core Measures ACS in differential dx? No CVA/TIA Diagnosis No Sepsis Present: No Sepsis Focused Exam Completed? No (Sanjay GAO,Jasper) Progress Differential Diagnosis: C/T/L spine injury, ext injury, ICH, pelvis injury, pnemothorax, spinal cord injury, INTRACRANIAL HEMORRHAGE, FRACTURE, CONCUSSION, LACERATION Diagnostic Imaging: Viewed by Me: CT Scan. Discussed w/RAD: CT Scan. Radiology Impression: PATIENT: CHAD VIRK PRESENT AGE: 77 PATIENT ACCOUNT NO: [id number] : 39 LOCATION: [facility] ORDERING PHYSICIAN: Jasper GAO SERVICE DATE: 02/21/18 EXAM TYPE: CAT - CT CERV SPINE WO IV CONTRAST; CT HEAD WO IV CONTRAST EXAMINATION: CT OF THE HEAD WITHOUT CONTRAST CT OF THE CERVICAL SPINE WITHOUT CONTRAST CLINICAL INFORMATION: Fall with head strike. Trauma. Neck pain after fall.. COMPARISON: Head and cervical spine CT scan dated 01/26/2018 and 10/07/2016. CT scan of the head dated 06/14/2017.. TECHNIQUE: Contiguous axial imaging was performed from the skullbase to vertex without intravenous administration of contrast. Coronal reformations of the head were obtained. Contiguous axial imaging was then performed from the skull base down to the thoracic inlet. Coronal and sagittal reformations of the cervical spine were obtained. DLP: 1010.30 mGy-cm. FINDINGS: CT scan of the head: There is no evidence of acute intracranial hemorrhage or territorial infarction. No abnormal mass-effect or midline shift is seen. Macias to white matter differentiation is well preserved. No extra-axial fluid collections are identified. The ventricles are normal in size. There is mild deep white matter periventricular low-attenuation seen, consistent with ischemic small vessel disease. A small hypodensity in the left basal ganglia is stable dating back to 04/16/2016, likely a prominent perivascular space versus old lacunar infarction. Calcification of the left vertebral artery and the bilateral carotid siphons is seen. The patient is status post bilateral scleral banding. The osseous structures and soft tissues are normal. The mastoid air cells and visualized portions of the paranasal sinuses are well-aerated. CT scan of the cervical spine: Evaluation is limited due to beam hardening artifact related to anterior spinal fusion hardware at C4-5. There is mild posterior subluxation of the C5 vertebral body relative to C6, unchanged from prior exam. Minimal anterolistheses of C4 on C5 is seen, much improved compared to the prior exam. Posterior spinal fusion hardware is seen extending from the C3 level down to C6. The fusion hardware appears intact. No evidence of acute fracture or dislocation. Craniocervical junction and atlantoaxial articulations are intact with moderate degenerative/hypertrophic changes again seen. Prevertebral soft tissues are normal in thickness. The included soft tissues of the neck are unremarkable. Minimal biapical reticulation is seen, consistent with scarring. IMPRESSION: CT scan of the head: No acute intracranial pathology. Changes of ischemic small vessel disease again noted. CT scan of the cervical spine: Evaluation limited by beam hardening artifact related to spinal fusion hardware. No evidence of acute cervical spine fracture. There is persistent anterolistheses of C4 on C5, significantly improved compared to prior exam status post anterior and posterior spinal fusion. No significant change in grade 1 retrolisthesis of C5 on C6. DICTATED BY: Addie Traylor MD DATE/TIME DICTATED:02/21/18926 STAGE ELECTRICIAN:BARR DATE/TIME TRANSCRIBED:926 CONFIDENTIAL, DO NOT COPY WITHOUT APPROPRIATE AUTHORIZATION. CXR Impression: PATIENT: CHAD VIRK PRESENT AGE: 77 PATIENT ACCOUNT NO: [id number] : 39 LOCATION: [facility] ORDERING PHYSICIAN: Jasper GAO SERVICE DATE: 02/21/18 EXAM TYPE: RAD - XRY- CHEST XRAY, TWO VIEWS EXAMINATION: XR CHEST CLINICAL INFORMATION: Trauma COMPARISON: None TECHNIQUE: 2 views of the chest were obtained. FINDINGS: Cardiac silhouette is normal in size. Atherosclerotic disease of the aortic arch. Lungs are well aerated. No lobar consolidation, pleural effusion or pneumothorax. Mild dextroscoliosis of the spine with degenerative changes. IMPRESSION: No acute cardiopulmonary pathology. DICTATED BY: Saeid Baig MD DATE/TIME DICTATED:02/21/181200 STAGE ELECTRICIAN:BARR DATE/TIME TRANSCRIBED:02/21/181200 CONFIDENTIAL, DO NOT COPY WITHOUT APPROPRIATE AUTHORIZATION. <Electronically signed in Other Vendor System> SIGNED BY: Saeid Baig MD 02/21/18 6385 Initial ED EKG: normal sinus rhythm, no ST T wave changes (Jasper Brown) Plan of Care: Orders Procedure Date/time Status URINALYSIS 02/21 837 Complete TROPONIN LEVEL 02/21 837 Complete PARTIAL THROMBOPLASTIN TIME 02/21 837 Complete PROTHROMBIN TIME 02/21 837 Complete COMPREHENSIVE METABOLIC PANEL 02/21 837 Complete CBC WITHOUT DIFFERENTIAL 02/21 837 Complete EKG 02/21 837 Active Laboratory Tests 02/21/18 0905: Urine Color YEL, Urine Clarity CLEAR, Urine pH 6.0, Ur Specific [place] 1.025, Urine Protein NEG, Urine Ketones NEG, Urine Nitrite NEG, Urine Bilirubin NEG, Urine Urobilinogen 0.2, Ur Leukocyte Esterase NEG, Ur Microscopic EXAM NOT REQUIRED, Urine Hemoglobin NEG, Urine Glucose NEG 02/21/18 0842: Anion Gap 7, Estimated GFR > 60, BUN/Creatinine Ratio 17.3, Glucose 101 H, Calcium 9.5, Total Bilirubin 0.6, AST 36, ALT 76 H, Alkaline Phosphatase 92, Troponin I < 0.01, Total Protein 7.0, Albumin 3.9, Globulin 3.1, Albumin/ Globulin Ratio 1.3, PT 11.9, INR 1.09, APTT 35, CBC w Diff NO MAN DIFF REQ, RBC 4.03 L, MCV 89.3, MCH 30.8, MCHC 34.5, RDW 13.9, MPV 7.4, Gran % 68.0, Lymphocytes % 20.6, Monocytes % 8.0, Eosinophils % 3.0, Basophils % 0.4, Absolute Granulocytes 4.4, Absolute Lymphocytes 1.3, Absolute Monocytes 0.5, Absolute Eosinophils 0.2, Absolute Basophils 0 Patient is here for evaluation after mechanical fall. He did hit his head and has heparin on his medication list. He has a laceration above the right eyebrow. There are no other signs of trauma. Patient is in a cervical collar prior to the fall. A CT scan of the head and neck were ordered chest x-ray AP pelvis x-ray ordered. Patient will also get a medical workup due to his advanced age. The laceration above the right eyebrow was cleaned with sterile water and Betadine 1% lidocaine with epi was used for local pain control. 8 4-0 nylon simple interrupted sutures used to approximate the wound patient tolerated well. Dressing applied tetanus up-to-date laceration repair done by medical student under my supervision. Discussed wound care procedures. CT scan of the head and neck is negative for acute trauma. Medical workup is unremarkable. Chest x-ray is clear pelvic x-ray results below Approximately 1 cm defect within the lateral left ilium with associated mild depression. This may represent an acute fracture or area of prior bone harvesting. A lytic lesion is within the differential but less likely. Recommend correlation with point tenderness. Cross-sectional imaging could always be obtained for confirmatory purposes. Patient has no point tenderness in this area advised him he needs to follow-up with his primary care doctor for further evaluation. Patient was able to ambulate with his walker in the emergency department at his baseline. Patient is currently in acute rehabilitation at [facility] he'll be sent back by embolus with instructions to use Tylenol for pain keep the laceration clean and dry discussed acute wound care follow-up with the primary care doctor for recheck suture removal in 7-10 days return sooner if any concerns case discussed with Dr. Hernandez he agrees (Sanjay GAO,Jasper) (Mary PENDLETON,Roberto Murillo) Departure Departure Disposition: HOME OR SELF CARE Condition: Stable Clinical Impression Primary Impression: Fall Qualifiers: Encounter type: initial encounter Qualified Code: W19.XXXA - Unspecified fall, initial encounter Referrals: Irena PENDLETON,Chica Thomas (PCP/Family) Additional Instructions: Follow-up with your primary care doctor to review all results of today's visit. The sutures need to come out in 7-10 days. look for SIGNS of infection like redness swelling discharge or pain monitor symptoms return with any concerns Please go over all results of today's visit with your primary care doctor. Contact your primary care doctor to let them know you were here in the emergency room. There may be nonspecific findings which may not be related to your visit today here in the emergency room but may require further evaluation and chronic monitoring by your primary care doctor. If you had a laceration today the chance of foreign body always remains. You should follow-up with your primary care doctor for recheck in 3-5 days for a wound check. If you had an x-ray done there is a chance that a fracture could have been missed on initial read and you should follow-up with your primary care doctor for repeat x-rays if symptoms persist. If your blood pressure was elevated here in the emergency room please have rechecked by our primary care doctor within the next 48. If you were prescribed a narcotic here in the emergency room or any type of controlled substances you're not allowed to drive while taking this medication or operate any type of heavy machinery. Narcotics can make you feel lightheaded dizziness nausea and can cause constipation. You may need to apple picking supervisor a stool softener. Thank you for choosing [facility] emergency room. Please return to the emergency room immediately if you have any other concerns worsening of symptoms. Departure Forms: Customer Survey General Discharge Information (Jasper Brown) PA/KNOWLEDGE MANAGEMENT CONSULTANT Co-Sign Statement Statement: ED Attending supervision documentation- [X] I saw and evaluated the patient. I have also reviewed all the pertinent lab results and diagnostic results. I agree with the findings and the plan of care as documented in the PA's/KNOWLEDGE MANAGEMENT CONSULTANT's documentation. Patient presents for evaluation of injury sustained status post fall. Physical examination reveals laceration over the right forehead. Patient is currently in a cervical collar secondary to a prior injury. [] I have reviewed the ED Record and agree with the PA's/KNOWLEDGE MANAGEMENT CONSULTANT's documentation. [] Additions or exceptions (if any) to the PAs/KNOWLEDGE MANAGEMENT CONSULTANT's note and plan are summarized below: [] (Mary PENDLETON,Roberto Murillo) Procedures Laceration/Wound Repair Laceration/Wound Repair: Wound Location: head (RIGHT FOREHEAD) Wound's Depth, Shape: linear Wound Length (cm): 2.5 Wound Explored: no foreign body removed, irrigated extensively Irrigated w/ Saline (ccs): 300 Betadine Prep? Yes Anesthesia: lidocaine w/ epi Volume Anesthetic (ccs): 5 Wound Debrided: minimal Wound Repaired With: sutures Suture Size/Type: 4:0, nylon Number of Sutures: 8 Layer Closure? No Sterile Dressing Applied: Yes Tetanus Status: up to date (Jasper Brown)
--- NOTE | 2018-02-21 12:09 | RADIOLOGY REPORT ---
EXAMINATION: XR CHEST CLINICAL INFORMATION: Trauma COMPARISON: None TECHNIQUE: 2 views of the chest were obtained. FINDINGS: Cardiac silhouette is normal in size. Atherosclerotic disease of the aortic arch. Lungs are well aerated. No lobar consolidation, pleural effusion or pneumothorax. Mild dextroscoliosis of the spine with degenerative changes. IMPRESSION: No acute cardiopulmonary pathology.
--- NOTE | 2018-02-21 12:22 | RADIOLOGY REPORT ---
EXAMINATION: XR PELVIS CLINICAL INFORMATION: Fall COMPARISON: Right hip radiographs including frontal chest 03/21/2016 TECHNIQUE: AP view of the pelvis. FINDINGS: There is a somewhat irregular approximately 1 cm defect within the lateral left ilium with associated mild depression. There is no fracture line which continues into the pelvic ring. Sacroiliac joints are symmetric. There is neither fracture nor dislocation of either hip on this frontal view. Degenerative changes of the visualized lower lumbar spine. Vascular calcifications. IMPRESSION: Approximately 1 cm defect within the lateral left ilium with associated mild depression. This may represent an acute fracture or area of prior bone harvesting. A lytic lesion is within the differential but less likely. Recommend correlation with point tenderness. Cross-sectional imaging could always be obtained for confirmatory purposes.
== END 2018-02-21 13:52 ==
LOC: ERH 08:08
PROVIDERS: Physician Assistant Medical
DX: S01.81XA Laceration without foreign body of other part of head, initial encounter (principal); W18.09XA Striking against other object with subsequent fall, initial encounter; Y92.129 Unspecified place in nursing home as the place of occurrence of the external cause; Y93.9 Activity, unspecified; I10 Essential (primary) hypertension; N40.0 Benign prostatic hyperplasia without lower urinary tract symptoms
CPT/HCPCS: 71046; 72170; 81003; 93005; 93010

== ENCOUNTER 2018-02-21 22:23 | Emergency (ER) | payer OTHER, MEDICARE ==
[~2018-02-21 22:23] MED LIST changes: +COLACE100 M1 PO; +HEPARIN SO5000 UNIT3 SC; +SENNA8.6 M3 PO
--- NOTE | 2018-02-21 22:37 | ED GENERAL ADULT ---
History of Present Illness General Chief Complaint: General Adult Stated Complaint: BIBA FROM [facility] PELVIC FRACTURE Source: patient, family, old records, EMS, W10 Exam Limitations: no limitations Vital Signs & Intake/Output Vital Signs & Intake/Output Vital Signs Date Time Temp Pulse Resp B/P B/P Pulse O2 O2 Flow FiO2 Mean Ox Delivery Rate 02/21 2241 98.8 79 18 165/78 96 Allergies Coded Allergies: NO KNOWN ALLERGIES (03/21/16) Reconcile Medications Amlodipine Besylate 10 MG TABLET 1 TAB PO DAILY HEART (Reported) Docusate Sodium (Colace) 100 MG CAPSULE 1 CAP PO BID STOOL SOFTENER (Reported ) Escitalopram Oxalate 10 MG TABLET 1 TAB PO DAILY DEPRESSION (Reported) Heparin Sodium,Porcine (Heparin Sodium) 5,000 UNIT/ML VIAL 1 ML SC Q8 BLOOD THINNER (Reported) Losartan Potassium 100 MG TABLET 1 TAB PO DAILY HEART (Reported) Sennosides (Senna) 8.6 MG TABLET 2 TAB PO QPM CONSTIPATION (Reported) Triage Note: PT BIBA FROM [facility] FOR ?PELVIC FRACTURE. WAS SEEN HERE EARLIER FOR A FALL. HAS SUTURES TO RT FORHEAD AND ARRIVAL WITH WELL USED C-COLLAR IN PLACE. PT HAD PELVIC XRAY HERE EARLIER AND NEGATIVE CT'S. WAS DISCHARGED BACK TO [facility], PELVIC XRAY SHOWED FX VS LESION. PT SENT BACK FOR MORE IMAGING (CT) TO CLARIFY DIAGNOSIS OF PELVIC FRACTURE. NO PELVIC INSTABILITY ON PALPATION. PT DENIES PAIN IN PELVIS IN PALPATION Triage Nurses Notes Reviewed? yes HPI: Patient was seen earlier today after a fall with head injury. An EKG pelvic x- ray showed an irregularity to his left pelvic area. Patient was subsequently sent back to [facility]. Patient then had an outpatient x-ray which showed a possible abnormality to his left hip surgery sent back in for evaluation. Patient denies any pain to that area. Patient had recent cervical fracture with bone graft with being taken from his left pelvic area. Past History Travel History Traveled to [place] past 21 day No Medical History Any Pertinent Medical History? see below for history Neurological: CVA EENT: NONE Cardiovascular: hypertension Respiratory: NONE Gastrointestinal: NONE Hepatic: NONE Renal: ENLARGED PROSTATE Musculoskeletal: falls, RLE FX NUMBNESS R FOOT Psychiatric: NONE Endocrine: NONE Blood Disorders: DVT Cancer(s): NONE MANAGER DISH/Reproductive: NONE Tetanus Vaccine: 10/07/16 Surgical History Surgical History: cERVICAL FRACTURE WITH BONE GRAFT Psychosocial History What is your primary language Uzbek Tobacco Use: Never used ETOH Use: denies use Illicit Drug Use: denies illicit drug use Family History Hx Contributory? No Review of Systems Review of Systems Constitutional: Reports: no symptoms. EENTM: Reports: no symptoms. Respiratory: Reports: no symptoms. Cardiovascular: Reports: no symptoms. GI: Reports: no symptoms. Genitourinary: Reports: no symptoms. Musculoskeletal: Reports: see HPI. Skin: Reports: no symptoms. Neurological/Psychological: Reports: no symptoms. Hematologic/Endocrine: Reports: no symptoms. Immunologic/Allergic: Reports: no symptoms. All Other Systems: Reviewed and Negative Physical Exam Physical Exam General Appearance: well developed/nourished, alert, awake Head: SUTURES IN PLACE FROM EARLIER Eyes: Bilateral: PERRL, EOMI. Ears, Nose, Throat: normal pharynx, normal ENT inspection, hearing grossly normal Neck: CERVICAL COLLAR IN PLACE Respiratory: normal breath sounds, chest non-tender, no respiratory distress, lungs clear Cardiovascular: regular rate/rhythm, normal peripheral pulses Gastrointestinal: normal bowel sounds, soft, non-tender, no organomegaly Back: normal inspection, normal range of motion Extremities: normal inspection, no edema, pelvis stable Neurologic/Psych: no motor/sensory deficits, awake, alert, oriented x 3, normal mood/affect Core Measures ACS in differential dx? No CVA/TIA Diagnosis: No Sepsis Present: No Sepsis Focused Exam Completed? No Progress Differential Diagnoses I considered the following diagnoses in my evaluation of the patient: [FX, CONTUSION] Plan of Care: Orders Procedure Date/time Status CT PELVIS WO IV CONTRAST 02/21 2237 Active Diagnostic Imaging: Viewed by Me: CT Scan. Discussed w/RAD: CT Scan. Radiology Impression: PATIENT: CHAD VIRK PRESENT AGE: 77 PATIENT ACCOUNT NO: [id number] : 39 LOCATION: [facility] ORDERING PHYSICIAN: Jomar Connors MD SERVICE DATE: 02/21/18 EXAM TYPE: CAT - CT PELVIS WO IV CONTRAST EXAMINATION: CT PELVIS WITHOUT CONTRAST CLINICAL INFORMATION: Fall. 1 cm defect measuring the left lateral ilium on plain film exam of pelvis. COMPARISON: None TECHNIQUE: Helical scanning was performed with submillimeter collimation through the pelvis. Sagittal and coronal multiplanar 2-D reconstructions were obtained. DLP: 744.59 mGy-cm FINDINGS: There is a 1 cm linear notch along the left iliac wing laterally that has sharply marginated parallel borders, sagittal image 39, correlates to lucency seen on the plain film study. There is a small amount of stranding in the subcutaneous fat adjacent to this defect. There is no associated bone fragments around this defect. The defect appears to be possibly iatrogenic. Correlate with history. There is marked degenerative disc disease of the lower lumbar spine disc height narrowing and plate spurring of the vertebrae. There is diverticulosis of the colon without diverticulitis. No acute change of bowel. The appendix is normal. Prostate enlarged measuring 5.4 cm transverse. IMPRESSION: 1. Focal defect of the left iliac wing that appears to be possibly iatrogenic in etiology. Correlate with history. 2. Diverticulosis of the left colon. No acute change of the bowel. 3. Large prostate. This critical result was discussed with Dr. Connors on , 11:25 PM and it was ascertained that the content and urgency of the report was understood at the time of direct communication. DICTATED BY: Bo Acharya MD DATE/TIME DICTATED:02/21/182314 RAISE MINER:JT DATE/TIME TRANSCRIBED:02/21/182314 CONFIDENTIAL, DO NOT COPY WITHOUT APPROPRIATE AUTHORIZATION. <Electronically signed in Other Vendor System> SIGNED BY: Bo Acharya MD 02/21/18 1626 Initial ED EKG: none Departure Departure Disposition: ACUTE REHAB FACILITY Condition: Stable Clinical Impression Primary Impression: Pelvic injury Referrals: Irena PENDLETON,Chica Thomas (PCP/Family) Departure Forms: Customer Survey General Discharge Information Critical Care Note Critical Care Note Critical Care Time: non-applicable
--- NOTE | 2018-02-21 23:31 | CT SCAN REPORT ---
EXAMINATION: CT PELVIS WITHOUT CONTRAST CLINICAL INFORMATION: Fall. 1 cm defect measuring the left lateral ilium on plain film exam of pelvis. COMPARISON: None TECHNIQUE: Helical scanning was performed with submillimeter collimation through the pelvis. Sagittal and coronal multiplanar 2-D reconstructions were obtained. DLP: 744.59 mGy-cm FINDINGS: There is a 1 cm linear notch along the left iliac wing laterally that has sharply marginated parallel borders, sagittal image 39, correlates to lucency seen on the plain film study. There is a small amount of stranding in the subcutaneous fat adjacent to this defect. There is no associated bone fragments around this defect. The defect appears to be possibly iatrogenic. Correlate with history. There is marked degenerative disc disease of the lower lumbar spine disc height narrowing and plate spurring of the vertebrae. There is diverticulosis of the colon without diverticulitis. No acute change of bowel. The appendix is normal. Prostate enlarged measuring 5.4 cm transverse. IMPRESSION: 1. Focal defect of the left iliac wing that appears to be possibly iatrogenic in etiology. Correlate with history. 2. Diverticulosis of the left colon. No acute change of the bowel. 3. Large prostate. This critical result was discussed with Dr. Connors on , 11:25 PM and it was ascertained that the content and urgency of the report was understood at the time of direct communication.
[2018-02-22 00:45] VITALS: BP 156/72
== END 2018-02-22 00:59 ==
LOC: ERH 22:23
DX: S39.93XA Unspecified injury of pelvis, initial encounter (principal); W19.XXXA Unspecified fall, initial encounter; Y92.129 Unspecified place in nursing home as the place of occurrence of the external cause; Y93.9 Activity, unspecified; I10 Essential (primary) hypertension